=== PATIENT | male | born 1990 | race African-American/Black ===

== ENCOUNTER 2020-06-07 20:08 | Emergency (ER) | payer SELFPAY ==
[~2020-06-07] VITALS: Ht 180.3 cm; Wt 75.3 kg
[2020-06-07 20:13] VITALS: BP 135/72
--- NOTE | 2020-06-07 20:17 | NUR ---
PT TAKEN TO BED 6
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
--- NOTE | 2020-06-07 20:20 | NUR ---
Dr. Morales examining patient.
[2020-06-07] MEDS ORDERED: IBUPROFEN 800 MG TAB PO ONE (20:25)
--- NOTE | 2020-06-07 20:40 | NUR ---
PT TAKEN TO RADIOLOGY
--- NOTE | 2020-06-07 20:49 | NUR ---
PT RETURN FROM XRAY
[2020-06-07 21:32] VITALS: BP 135/72
--- NOTE | 2020-06-07 21:32 | NUR ---
Patient discharged with v/s stable. Written and verbal after care instructions given and explained. Patient alert, oriented and verbalized understanding of instructions. Ambulatory with steady gait. All questions addressed prior to discharge. ID band removed. Patient advised to follow up with PMD. Rx of lidoderm patch, and naproxen given. Patient educated on indication of medication including possible reaction and side effects. Opportunity to ask questions provided and answered.
== END 2020-06-07 21:32 | disposition home or self-care (01) ==
LOC: MED 20:08
DX: S39.012A Strain of muscle, fascia and tendon of lower back, initial encounter (principal); F12.10 Cannabis abuse, uncomplicated; V49.9XXA Car occupant (driver) (passenger) injured in unspecified traffic accident, initial encounter; Y93.89 Activity, other specified; Y92.89 Other specified places as the place of occurrence of the external cause; Y99.8 Other external cause status
CPT/HCPCS: 72110; 99283